=== PATIENT | female | born 1985 | race Two or more races ===

== ENCOUNTER 2020-11-25 09:39 | Outpatient (CLI) | payer OTHER | END 2020-11-25 10:01 | disposition home or self-care (01) | LOC: SONOGRAMA 09:39 | PROVIDERS: ATTEND Pathology Anatomic Pathology & Clinical Pathology | DX: E04.2 Nontoxic multinodular goiter (principal) ==

== ENCOUNTER 2022-01-22 08:27 | Outpatient (CLI) | payer OTHER | END 2022-01-22 08:29 | disposition home or self-care (01) | LOC: SONOGRAMA 08:27 | PROVIDERS: ATTEND Pathology Anatomic Pathology & Clinical Pathology | DX: E04.2 Nontoxic multinodular goiter (principal) ==

== ENCOUNTER 2023-01-13 19:23 | Inpatient (IN) | payer OTHER ==
[~2023-01-13] VITALS: Ht 160 cm; Wt 67.6 kg
[2023-01-13] MEDS ORDERED: SYNTHROID75 MCG PO (20:42)
[2023-01-13] MEDS ORDERED: VALTREX1000 MG PO (20:42)
[2023-01-13] MEDS ORDERED: PRENATAL TABLE1 EAC1 PO (20:42)
== END 2023-01-16 11:46 | disposition home or self-care (01) | DRG 807 ==
LOC: LDR 19:23 → OB/GYN 01-14 17:32
PROVIDERS: ADMIT Obstetrics & Gynecology Gynecology; ATTEND Obstetrics & Gynecology Gynecology
PROC: 4A1HXCZ Monitoring of Products of Conception, Cardiac Rate, External Approach (ICD-10-PCS; 2023-01-13)
PROC: 10E0XZZ Delivery of Products of Conception, External Approach (ICD-10-PCS; principal; 2023-01-14)
PROC: 0W8NXZZ Division of Female Perineum, External Approach (ICD-10-PCS; 2023-01-14)
DX: O70.1 Second degree perineal laceration during delivery (principal); Z37.0 Single live birth; Z3A.38 38 weeks gestation of pregnancy; Z20.822 Contact with and (suspected) exposure to COVID-19